=== PATIENT | female | born 1965 | race Caucasian/White ===

== ENCOUNTER 2017-06-19 07:06 | Outpatient (CLI) | payer OTHER | END 2017-06-19 07:07 | disposition home or self-care (01) | LOC: BICMAMMO 07:06 | PROVIDERS: ATTEND Specialist | DX: Z12.31 Encounter for screening mammogram for malignant neoplasm of breast (principal); R92.1 Mammographic calcification found on diagnostic imaging of breast | CPT/HCPCS: 77063; 77067; G0202 ==

== ENCOUNTER 2018-07-19 13:51 | Outpatient (CLI) | payer OTHER | END 2018-07-19 13:52 | disposition home or self-care (01) | LOC: BICMAMMO 13:51 | PROVIDERS: ATTEND Specialist | DX: Z12.31 Encounter for screening mammogram for malignant neoplasm of breast (principal); Z80.3 Family history of malignant neoplasm of breast | CPT/HCPCS: 77063; 77067 ==

== ENCOUNTER 2018-12-27 14:26 | Outpatient (CLI) | payer OTHER | END 2018-12-27 14:27 | disposition home or self-care (01) | LOC: CTENTCT 14:26 | PROVIDERS: ATTEND Specialist | DX: R51 Headache (principal) | CPT/HCPCS: 70486 ==

== ENCOUNTER 2019-01-13 07:37 | Day surgery (SDC) | payer OTHER ==
[2019-01-12 09:06] VITALS: BMI 36.1
[2019-01-13] MEDS ORDERED: Oxymetazoline HCl 0.05% ( 15 ML ) ONE ×2 (08:43→09:26)
[2019-01-13] MEDS ORDERED: Scopolamine 1.5 mg/72 hour Patch ONE (09:25)
[2019-01-13] MEDS ORDERED: Lidocaine 1% w/Epinephrine 1:100K 20 ML VIAL ONE (09:26)
[2019-01-13] MEDS ORDERED: Fentanyl 250 MCG/5 ML VIAL ONE (09:45)
[2019-01-13] MEDS ORDERED: EPINEPHrine 1 MG/ML AMP ONE (10:29)
[2019-01-13] MEDS ORDERED: Fentanyl 100 MCG/2 ML VIAL ONE ×3 (11:25→12:12)
--- NOTE | 2019-01-13 11:57 | OP ---
DATE OF PROCEDURE: 01/13/2019 PREOPERATIVE DIAGNOSES: 1. Left proptosis. 2. Bilateral frontal sinusitis. 3. Right maxillary sinus obstruction, chronic sinusitis, and extensive postoperative scarring. POSTOPERATIVE DIAGNOSES: 1. Left proptosis. 2. Bilateral frontal sinusitis. 3. Right maxillary sinus obstruction, chronic sinusitis, and extensive postoperative scarring. PROCEDURE PERFORMED: Bilateral nasal endoscopy with frontal sinusotomy, bilateral nasal endoscopy with maxillary antrostomy, left nasal endoscopy with orbital decompression, [place] stereotactic imaging guidance. FINDINGS: The patient had extensive scarring after a failed previous right orbital endoscopic sinus procedure with right orbital decompression. The patient had extensive scarring from previous sinus surgery. The right orbital contents had herniated and obstructed the right maxillary sinus. Both frontal recesses were scarred with resultant frontal sinusitis and the patient had left proptosis. So, a left orbital decompression was performed, medial decompression. PROCEDURE IN DETAIL: After consent was obtained, the patient was identified and brought to the OR and placed in the operating table in supine position. General endotracheal anesthesia was obtained. The patient was positioned for surgery. The nose was prepped and draped in sterile fashion. The nose was decongested with topical decongestant and then infiltrated with 1% lidocaine 1:100,000 epinephrine. We first addressed the frontal sinuses bilaterally using the [place] stereotactic imaging. We identified the intended openings of the frontal sinus and was able to use a combination of microdebrider probes and balloon dilation using the Entellus balloon. Ultimately, adequate ventilation and access to the frontal recess was obtained bilaterally. After this was performed, this was documented with the stereotactic imaging as well as the lighted catheter on the balloon wand. We then proceeded with addressing the left medial orbital decompression using the stereotactic imaging guidance. We delineated the lateral nasal wall and the tear duct. We then made an incision through the mucosa and down through the lacrimal bone. This then allowed. We then used a [place] elevator to elevate the periorbitum from the inner surface of the lacrimal bone and the lacrimal bone was removed all the way back to the apex. We then compressed the eyes gently and orbital contents herniated into the sinus cavity. We then actually made some incision in the periorbitum and to allow the fat to eviscerate into the ethmoid cavity. Following this, we then turned toward possibly the most challenging portion of the procedure, which was to perform a maxillary antrostomy on the right side with care not to injure the orbital contents from the right, which had herniated it and adhered down to the inferior turbinate. Again, the stereotactic unit was helpful and delineating the anatomy, and we were able to use a ball-tip to enter and tease away the periorbitum from the maxillary sinus. Once this was done, the decision was made to reduce some of the orbital fat with electrocautery with care not to injure any of the periorbital muscles. We then elected to remove part of the inferior turbinate and lateral nasal inferior to the natural os and contiguous with the natural os to provide postoperative ventilation and drainage of the maxillary sinus. At this point, the procedure was finished. The patient was awakened, extubated, and taken to the recovery room in stable condition prior to discharge home. Job ID: [id number]
[2019-01-13] MEDS ORDERED: Promethazine HCl 25 MG/ML VIAL ONE (13:24)
[2019-01-13] MEDS ORDERED: HYDROcodone/Acetaminophen 5/325 mg Tablet ONE (14:12)
--- NOTE | 2019-01-17 08:43 | EKG ---
Test Reason : PREOP Blood Pressure : / mmHG Vent. Rate : 090 BPM Atrial Rate : 090 BPM P-R Int : 154 ms QRS Dur : 076 ms QT Int : 382 ms P-R-T Axes : 064 022 042 degrees QTc Int : 467 ms Normal sinus rhythm Normal ECG No previous ECGs available Confirmed by DR. Ritika BOSTON ([id number]) on 01/17/2019 8:43:09 AM Referred By: CARMEN Confirmed By:DR. Ritika BOSTON
== END 2019-01-13 15:10 | disposition home or self-care (01) ==
LOC: SDC 07:37
PROVIDERS: ATTEND Specialist
PROC: 099Q8ZZ Drainage of Right Maxillary Sinus, Via Natural or Artificial Opening Endoscopic (ICD-10-PCS; principal; 2019-01-13)
PROC: 099R8ZZ Drainage of Left Maxillary Sinus, Via Natural or Artificial Opening Endoscopic (ICD-10-PCS; principal; 2019-01-13)
DX: J32.1 Chronic frontal sinusitis (principal); J34.89 Other specified disorders of nose and nasal sinuses; E05.00 Thyrotoxicosis with diffuse goiter without thyrotoxic crisis or storm; Z79.899 Other long term (current) drug therapy
CPT/HCPCS: 36415; 85014; 93005; 93010; J0171; J2001; J2550; J3010

== ENCOUNTER 2019-08-31 15:28 | Outpatient (CLI) | payer OTHER ==
--- NOTE | 2019-08-31 16:23 | MMO ---
Bilateral MAMMO Bilat Screen [facility]. CLINICAL HISTORY: Patient is 53 years old and is seen for screening. The patient has the following family history of breast cancer: cousin female. The patient has no personal history of cancer. The patient has a history of left Excisional Biopsy in 2006 - benign. VIEWS: The views performed were: bilateral craniocaudal with tomosynthesis and bilateral mediolateral oblique with tomosynthesis. FILMS COMPARED: The present examination has been compared to prior imaging studies performed at [facility] on 06/06/2014, 05/06/2016, 06/19/2017 and 07/19/2018. This study has been interpreted with the assistance of computer-aided detection. MAMMOGRAM FINDINGS: There are scattered fibroglandular densities. Benign calcifications are noted bilaterally. There are no suspicious masses, suspicious calcifications, or new areas of architectural distortion. IMPRESSION: THERE IS NO MAMMOGRAPHIC EVIDENCE OF MALIGNANCY. A ROUTINE FOLLOW-UP MAMMOGRAM IN 1 YEAR IS RECOMMENDED. THE RESULTS OF THIS EXAM WERE SENT TO THE PATIENT. ACR BI-RADS Category 2 - Benign finding MAMMOGRAPHY NOTE: 1. A negative mammogram report should not delay a biopsy if a dominant of clinically suspicious mass is present. 2. Approximately 10% to 15% of breast cancers are not detected by mammography. 3. Adenosis and dense breasts may obscure an underlying neoplasm. Reported by: JUAQUIN NOE MD Electonically Signed: [id number]
== END 2019-08-31 15:29 | disposition home or self-care (01) ==
LOC: BICMAMMO 15:28
PROVIDERS: ATTEND Specialist
DX: Z12.31 Encounter for screening mammogram for malignant neoplasm of breast (principal); Z80.3 Family history of malignant neoplasm of breast; Z91.89 Other specified personal risk factors, not elsewhere classified
CPT/HCPCS: 77063; 77067

== ENCOUNTER 2020-12-26 10:03 | Outpatient (CLI) | payer BC | END 2020-12-26 10:04 | disposition home or self-care (01) | LOC: BICMAMMO 10:03 | PROVIDERS: ATTEND Specialist | DX: Z12.31 Encounter for screening mammogram for malignant neoplasm of breast (principal); M81.0 Age-related osteoporosis without current pathological fracture; Z80.3 Family history of malignant neoplasm of breast; Z91.89 Other specified personal risk factors, not elsewhere classified | CPT/HCPCS: 77063; 77067; 77080 ==

== ENCOUNTER 2021-12-31 08:40 | Outpatient (CLI) | payer BC | END 2021-12-31 08:41 | disposition home or self-care (01) | LOC: BICMAMMO 08:40 | PROVIDERS: ATTEND Specialist | DX: N63.20 Unspecified lump in the left breast, unspecified quadrant (principal); Z80.3 Family history of malignant neoplasm of breast | CPT/HCPCS: 77066; G0279 ==

== ENCOUNTER 2023-04-20 14:08 | Outpatient (CLI) | payer BC | END 2023-04-20 14:09 | disposition home or self-care (01) | LOC: BICMAMMO 14:08 | PROVIDERS: ATTEND Specialist | DX: Z12.31 Encounter for screening mammogram for malignant neoplasm of breast (principal); M85.88 Other specified disorders of bone density and structure, other site; Z80.3 Family history of malignant neoplasm of breast; Z91.89 Other specified personal risk factors, not elsewhere classified | CPT/HCPCS: 77063; 77067; 77080 ==